=== PATIENT | male | born 1985 | race Caucasian/White ===

== ENCOUNTER 2016-05-12 22:35 | Emergency (ER) | payer SELFPAY ==
--- NOTE | 2016-05-12 23:24 | ER Document Report ---
ED Oral Problem - General Chief Complaint: Toothache Stated Complaint: FACIAL SWELLING Time seen by provider: 23:25 Mode of Arrival: Ambulatory Information source: Patient Notes: This 30-year-old male patient comes emergency room complaining of severe toothache on the left lower molar region for the past 4 days. Part of the tooth is broken away. He was out of town for the last few days. There is no fever associated with this. TRAVEL OUTSIDE OF THE [place] IN LAST 30 DAYS: No - Related Data Allergies/Adverse Reactions: Iodinated Contrast Media - Oral and [IV Dye, Iodine Containing] Allergy ( Verified 07/05/14 14:58) iodine [Iodine] Allergy (Verified 07/05/14 14:58) Past Medical History - General Information source: Patient - Social History Smoking Status: Current Every Day Smoker Cigarette use (# per day): Yes - 1/2 PPD Chew tobacco use (# tins/day): No Smoking Education Provided: No Frequency of alcohol use: None Drug Abuse: None Occupation: moving and storage Lives with: Spouse/Significant other Family History: Reviewed & Not Pertinent Patient has suicidal ideation: No Patient has homicidal ideation: No - Medical History Medical History: Negative Neurological Medical History: Reports: Hx Seizures Renal/ Medical History: Denies: Hx Peritoneal Dialysis Psychiatric Medical History: Reports: Hx Anxiety Traumatic Medical History: Reports: Hx Fractures - RIBS, HIP, STERNUM Surgical Hx: Negative - Immunizations Immunizations up to date: No Hx Diphtheria, Pertussis, Tetanus Vaccination: Yes Review of Systems - Review of Systems Constitutional: No symptoms reported EENT: See HPI, Dental problem Cardiovascular: No symptoms reported Respiratory: No symptoms reported Gastrointestinal: No symptoms reported Genitourinary: No symptoms reported Musculoskeletal: No symptoms reported Skin: No symptoms reported Hematologic/Lymphatic: No symptoms reported Neurological/Psychological: No symptoms reported Physical Exam - Vital signs Vitals: Temp Pulse Resp BP Pulse Ox 97.9 F 77 18 128/71 H 98 05/12/16 22:50 05/12/16 22:50 05/12/16 22:50 05/12/16 22:50 05/12/16 22:50 Interpretation: Normal - General General appearance: Alert In distress: Mild - HEENT Head: Normocephalic, Atraumatic Eyes: Normal Pupils: PERRL Mouth/Lips: Other - The left lower first molar has the medial aspect of the tooth broken off from decay. There is edema to the gum around the tooth. There is no obvious abscess seen. Pharynx: Normal Neck: Normal - Respiratory Respiratory status: No respiratory distress - Cardiovascular Rhythm: Regular - Abdominal Inspection: Normal - Back Back: Normal - Extremities General upper extremity: Normal inspection General lower extremity: Normal inspection - Neurological Neuro grossly intact: Yes - Psychological Associated symptoms: Normal affect, Normal mood - Skin Skin Temperature: Warm Skin Moisture: Dry Skin Color: Normal Course - Vital Signs Vital signs: Temp Pulse Resp BP Pulse Ox 97.9 F 77 18 128/71 H 98 05/12/16 22:50 05/12/16 22:50 05/12/16 22:50 05/12/16 22:50 05/12/16 22:50 Discharge - Discharge Clinical Impression: Toothache Condition: Stable Disposition: HOME, SELF-CARE Additional Instructions: Dental Infection or Abscess: You have an infection, perhaps an abscess (pus formation) of the gum around one of your teeth, which is probably decayed. If there is an abscess, it may drain on its own or it may need to be opened or lanced. Severe swelling or drainage around a tooth usually means a deep dental abscess which usually requires evaluation and treatment by a dentist or oral surgeon. Antibiotics may be prescribed while awaiting dental treatment. If you develop high fever with chills, worsening pain, or increasing swelling in the area, see a dentist or oral surgeon immediately or return to the Emergency Department immediately. TAKE THE MEDICATION PRESCRIBED. TRY FIX-A-TOOTH TO SEAL THE OPEN CAVITY IN THE TOOTH UNTIL YOU CAN SEE A DENTIST THIS WEEK. FOLLOW UP WITH A DENTIST THIS WEEK. RETURN TO THE EMERGENCY ROOM IF ANY NEW OR WORSENING SYMPTOMS. Prescriptions: Oxycodone HCl/Acetaminophen [Percocet 5-325 mg Tablet] 1 - 2 tab PO ASDIR PRN # 15 tablet PRN Reason: Penicillin V Potassium [Penicillin Vk 500 mg Tablet] 500 mg PO QID #28 tablet
[2016-05-12] MEDS ORDERED: PENICILLIN V POTASSIUM 500 MG TABLET PO ONE (23:28)
[2016-05-12] MEDS ORDERED: HYDROCODONE/ACETAMINOPHEN 5-325 MG 6 TAB/DSPK PO PRN (23:28)
[2016-05-12] MEDS ORDERED: OXYCODONE-ACETAMINOPHEN 5-325 MG TABLET PO ONE (23:28)
[2016-05-12 23:55] VITALS: BP 128/71
== END 2016-05-13 | disposition home or self-care (01) ==
LOC: ER 22:35
DX: K08.9 Disorder of teeth and supporting structures, unspecified (principal); F17.210 Nicotine dependence, cigarettes, uncomplicated
CPT/HCPCS: 99282

== ENCOUNTER 2016-10-04 00:13 | Emergency (ER) | payer SELFPAY ==
[2016-10-04] MEDS ORDERED: ONDANSETRON 4 MG TAB.RAPDIS PO ONE (00:22)
[2016-10-04] MEDS ORDERED: ACETAMINOPHEN 325 MG TABLET PO ONE (03:12)
--- NOTE | 2016-10-04 03:21 | RADIOLOGY REPORT (SQ) ---
EXAM DESCRIPTION: HAND RIGHT 3 VIEWS COMPLETED DATE/TIME: 10/04/2016 3:00 am REASON FOR STUDY: dog bite COMPARISON: 06/17/2012. EXAM PARAMETERS: NUMBER OF VIEWS: Three views. TECHNIQUE: AP, lateral and oblique radiographic images acquired of the right hand. LIMITATIONS: None. FINDINGS: MINERALIZATION: Normal. BONES: No acute fracture or dislocation. No worrisome bone lesions. Mild radial angulation deformit y of the right 5th metacarpal shaft consistent with old injury. JOINTS: No effusions. SOFT TISSUES: Known dog bite injury of the right knuckles; the No foreign body. OTHER: No other significant finding. IMPRESSION: No acute bone or joint involvement. Known soft tissue injury. TECHNICAL DOCUMENTATION: JOB ID: [id number] [employer]- All Rights Reserved
[2016-10-04] MEDS ORDERED: ACETAMINOPHEN 325 MG TABLET ONE (03:27)
[2016-10-04] MEDS ORDERED: HYDROMORPHONE HCL INJ/PF 2 MG/ML AMPULE IV ONE (03:31)
[2016-10-04] MEDS ORDERED: AMPICILLIN SOD/SULBACTAM 3 GM VIAL IV ONE (03:31)
[2016-10-04] MEDS ORDERED: ONDANSETRON ODT 4 MG TAB (6 TAB/DSPK) PO PRN (05:02)
[2016-10-04] MEDS ORDERED: HYDROCODONE/ACETAMINOPHEN 5-325 MG 6 TAB/DSPK PO PRN (05:02)
--- NOTE | 2016-10-04 05:02 | ER Document Report ---
ED General - General Chief Complaint: Dog Bite Stated Complaint: HAND INJURY Time Seen by Provider: 10/04/16 03:27 Notes: 31-year-old male who was trying to get his dog away from a snake. The dog became excited and bit his right hand. He has pain with movement of the fingers and pain in the right hand. He has 2 small abrasions to the dorsum of the right hand as well as once more abrasion to the palmar aspect of the right hand. She does denies any numbness or tingling. This incident happened today. His dog is up-to-date in vaccinations. His last Tetanus Shot was 2 years ago. TRAVEL OUTSIDE OF THE [place] IN LAST 30 DAYS: No - Related Data Allergies/Adverse Reactions: Iodinated Contrast- Oral and IV Dye [IV Dye, Iodine Containing] Allergy ( Verified 10/04/16 04:13) iodine [Iodine] Allergy (Verified 10/04/16 04:13) Past Medical History - Social History Smoking Status: Current Every Day Smoker Cigarette use (# per day): No Chew tobacco use (# tins/day): No Frequency of alcohol use: None Drug Abuse: None Family History: Reviewed & Not Pertinent Patient has suicidal ideation: No Patient has homicidal ideation: No Neurological Medical History: Reports: Hx Seizures Renal/ Medical History: Denies: Hx Peritoneal Dialysis Psychiatric Medical History: Reports: Hx Anxiety Traumatic Medical History: Reports: Hx Fractures - RIBS, HIP, STERNUM - Immunizations Immunizations up to date: No Hx Diphtheria, Pertussis, Tetanus Vaccination: Yes Review of Systems - Review of Systems Notes: My Normal Review Basic REVIEW OF SYSTEMS: CONSTITUTIONAL : Denies fever, chills, or sweats. Denies recent illness. MUSCULOSKELETAL: Pain in right hand. SKIN: Denies rash or skin lesions. NEUROLOGICAL: Denies sensory or motor loss. ALL OTHER SYSTEMS REVIEWED AND NEGATIVE. Physical Exam - Vital signs Vitals: Temp Pulse Resp BP Pulse Ox 98.3 F 67 19 118/81 98 10/04/16 00:16 10/04/16 00:16 10/04/16 00:16 10/04/16 00:16 10/04/16 00:16 - Notes Notes: General Appearance: Well nourished, alert, cooperative, no acute distress, moderate obvious discomfort. Vitals: reviewed, See vital signs table. Extremities: strength 5/5 in all extremities, good pulses in all extremities, patient has a very superficial abrasion over the dorsum of the right hand. He then has a second abrasion that appears to be just past the dermis itself. Patient has a small abrasion on the palmar aspect of the right hand. There is no surrounding erythema or swelling. Patient does have significant pain with flexion or extension of the fingers of his hand. He does seem to be able to produce flex and extend his fingers but will not flex or extend them fully but says it is painful. Skin: warm, dry, appropriate color, no rash Neuro: speech clear, oriented x 3, normal affect, responds appropriately to questions. Course - Re-evaluation Re-evalutation: 10/04/16 07:49 10/04/16 07:52 I irrigated all the wounds with saline. I cleaned them with peroxide. I then placed an iodine Gault over the wounds and wrap the hand. I informed him he must return to the ER in 24 hours to reassess the wounds to make sure that she does not have any redness or swelling associated with them. I did give him a dose of Unasyn here. I will place him on Augmentin. Patient encouraged to return to ER immediately if has any redness or swelling to the hand. Patient agrees with plan will be discharged home. Dictation of this chart was performed using voice recognition software; therefore, there may be some unintended grammatical errors. - Vital Signs Vital signs: Temp Pulse Resp BP Pulse Ox 97.6 F 54 L 18 122/70 95 10/04/16 05:10 10/04/16 05:10 10/04/16 05:10 10/04/16 05:10 10/04/16 05:10 Discharge - Discharge Clinical Impression: Dog bite Qualifiers: Encounter type: initial encounter Qualified Code(s): W54.0XXA - Bitten by dog, initial encounter Condition: Good Disposition: HOME, SELF-CARE Additional Instructions: Animal Bites Animal bites are often heavily contaminated with bacteria. In spite of thorough cleansing and proper treatment, these wounds frequently become infected. Bite wounds of the hands are especially prone to complications. Bites are dressed, if possible. Large wounds may require suturing after internal cleansing. Because of infection risk, some large wounds must remain unstitched. Your doctor is trained to advise you on the best treatment for your bite. Call the doctor at once if the wound becomes red, swollen, warm, increasingly painful, or if it begins to drain. Danger signs also include red streaks up the involved extremity, swollen glands in the groin or under the arm , or fever and chills. Please return to the ER within 24 hours so we can recheck your hand and change the dressing. Return to [facility] ER imemdiately if you have redness, increased swelling to the hand, or fevers. Prescriptions: Amox Tr/Potassium Clavulanate [Augmentin 875-125 Tablet] 1 tab PO BID 10 Days Hydrocodone/Acetaminophen [[place] 5-325 mg Tablet] 1 tab PO Q4 PRN #16 tablet PRN Reason: For Breakthrough Pain Forms: Return to Work
[2016-10-04 05:29] VITALS: BP 122/70
== END 2016-10-04 05:10 | disposition home or self-care (01) ==
LOC: ER 00:13
DX: S61.451A Open bite of right hand, initial encounter (principal); W54.0XXA Bitten by dog, initial encounter; F17.200 Nicotine dependence, unspecified, uncomplicated
CPT/HCPCS: 99283; 73130; J0295; J1170

== ENCOUNTER 2017-08-17 17:39 | Emergency (ER) | payer SELFPAY ==
[2017-08-17 17:50] VITALS: BP 139/76
[2017-08-17] MEDS ORDERED: LIDOCAINE 1% INJ (10 MG/ML) 10 ML MDV INJ ONE (18:05)
[2017-08-17] MEDS ORDERED: LIDOCAINE 2% VISCOUS SOLN 20 ML UDCUP PO ONE (18:06)
[2017-08-17] MEDS ORDERED: CLINDAMYCIN HCL 150 MG CAPSULE PO ONE (18:06)
[2017-08-17] MEDS ORDERED: LIDOCAINE 1% INJ-PF (10 MG/ML) 30 ML SDV INJ ONE (18:09)
[2017-08-17] MEDS ORDERED: DEXAMETHASONE 4 MG TABLET PO ONE (18:24)
--- NOTE | 2017-08-17 18:28 | ER Document Report ---
ED Oral Problem - General Chief Complaint: Abscess Stated Complaint: JAW PAIN Time Seen by Provider: 08/17/17 18:05 Mode of Arrival: Ambulatory Information source: Patient Notes: 32-year-old male presents to ED for dental abscess to the left lower jaw with large cavity to tooth #17. Patient states it is been hurting for about a month worse for about a week swelling started a couple days ago and is beginning worse. TRAVEL OUTSIDE OF THE [place] IN LAST 30 DAYS: No - HPI Patient complains to provider of: Swelling of face, Swelling of jaw, Toothache Onset: Last week Onset: Gradual Quality of pain: Sharp, Throbbing Severity: Severe Pain Level: 5 Swollen jaw/face: Moderate Associated symptoms: Toothache Worsened by: Cold Similar symptoms previously: Yes Recently seen / treated by doctor/dentist: No - Related Data Allergies/Adverse Reactions: Iodinated Contrast- Oral and IV Dye [IV Dye, Iodine Containing] Allergy ( Verified 08/17/17 17:44) iodine [Iodine] Allergy (Verified 08/17/17 17:44) Past Medical History - General Information source: Patient - Social History Smoking Status: Current Every Day Smoker Cigarette use (# per day): Yes Smoking Education Provided: Yes - 4 min Frequency of alcohol use: None Drug Abuse: None Lives with: Family Family History: Reviewed & Not Pertinent Patient has suicidal ideation: No Patient has homicidal ideation: No - Past Medical History Cardiac Medical History: Reports: None Pulmonary Medical History: Reports: None EENT Medical History: Reports: None Neurological Medical History: Reports: Hx Seizures Endocrine Medical History: Reports: None Renal/ Medical History: Reports: None Malignancy Medical History: Reports None GI Medical History: Reports: None Musculoskeltal Medical History: Reports Hx Musculoskeletal Deformity, Reports Hx Musculoskeletal Trauma Skin Medical History: Reports None Psychiatric Medical History: Reports: Hx Anxiety Traumatic Medical History: Reports: Hx Fractures - RIBS, HIP, STERNUM, Hx Pneumothorax Past Surgical History: Reports: Hx Orthopedic Surgery - Bilateral hips, sternum , Other - chest tube - Immunizations Immunizations up to date: No Hx Diphtheria, Pertussis, Tetanus Vaccination: Yes Review of Systems - Review of Systems Constitutional: No symptoms reported EENT: No symptoms reported, Mouth swelling, Dental problem Cardiovascular: No symptoms reported Respiratory: No symptoms reported Gastrointestinal: No symptoms reported Genitourinary: No symptoms reported Male Genitourinary: No symptoms reported Musculoskeletal: No symptoms reported Skin: No symptoms reported Hematologic/Lymphatic: No symptoms reported Neurological/Psychological: No symptoms reported -: Yes All other systems reviewed and negative Physical Exam - Vital signs Vitals: Temp Pulse Resp BP Pulse Ox 98.2 F 69 16 139/76 H 99 08/17/17 17:48 08/17/17 17:48 08/17/17 17:48 08/17/17 17:48 08/17/17 17:48 Interpretation: Normal - General General appearance: Appears well, Alert - HEENT Head: Normocephalic, Atraumatic Eyes: Normal Pupils: PERRL Ears: Normal External canal: Normal Tympanic membrane: Normal Sinus: Normal Nasal: Normal Mouth/Lips: Caries Teeth diagram: 1 - Very decayed tooth with a large crater. Large dental abscess lateral to the tooth with swelling to the face in the area of the tooth it does not go below the low the jaw line, no redness to the face. Pharynx: Normal Neck: Anterior cervical chain - Respiratory Respiratory status: No respiratory distress Chest status: Nontender Breath sounds: Normal Chest palpation: Normal - Cardiovascular Rhythm: Regular Heart sounds: Normal auscultation Murmur: No - Abdominal Inspection: Normal Distension: No distension Bowel sounds: Normal Tenderness: Nontender Organomegaly: No organomegaly - Back Back: Normal, Nontender - Extremities General upper extremity: Normal inspection, Nontender, Normal color, Normal ROM , Normal temperature General lower extremity: Normal inspection, Nontender, Normal color, Normal ROM , Normal temperature, Normal weight bearing. No: Sunshine's sign - Neurological Neuro grossly intact: Yes Cognition: Normal Orientation: AAOx4 [place] Coma Scale Eye Opening: Spontaneous [place] Coma Scale Verbal: Oriented Dario Coma Scale Motor: Obeys Commands Dario Coma Scale Total: 15 Speech: Normal Motor strength normal: LUE, RUE, LLE, RLE Sensory: Normal - Psychological Associated symptoms: Normal affect, Normal mood - Skin Skin Temperature: Warm Skin Moisture: Dry Skin Color: Normal Course - Re-evaluation Re-evalutation: 08/17/17 18:45 After performing a Medical Screening Examination, I estimate there is LOW risk for a DEEP SPACE INFECTION (e.g., SCOTTIE'S ANGINA OR RETROPHARYNGEAL ABSCESS), MENINGITIS, INTRACRANIAL HEMORRHAGE, or AIRWAY COMPROMISE, thus I consider the discharge disposition reasonable. Also, there is no evidence or peritonitis, sepsis, or toxicity. I have reevaluated this patient multiple times and no significant life threatening changes are noted. The patient and I have discussed the diagnosis and risks, and we agree with discharging home with close follow-up with the understanding that symptoms and presentations can change. We also discussed returning to the Emergency Department immediately if new or worsening symptoms occur. We have discussed the symptoms which are most concerning (e.g., changing or worsening pain, trouble swallowing or breathing, neck stiffness or fever) that necessitate immediate return. Patient was given viscous lidocaine and then an 18-gauge needle was used to give 1% lidocaine into the abscess. Moderate amount of purulent drainage returned with the 18-gauge needle. A 15 blade was then used to come continue opening the abscess with more purulent drainage return. Patient was encouraged to rinse his mouth with 2 cups of water to flush out as much pus as possible. Patient was treated with 600 mg of clindamycin p.o. in the emergency room and given a syringe of viscous lidocaine to take home with him for his pain. He was also given a prescription of Percocet 5/325 for his pain. Patient was instructed to follow-up with the dentist as soon as possible as this tooth does need to be removed and this abscess needs to be reassessed. Patient was encouraged to return to the ED if he had continued swelling or increase in pain. - Vital Signs Vital signs: Temp Pulse Resp BP Pulse Ox 98.2 F 69 16 139/76 H 99 08/17/17 17:48 08/17/17 17:48 08/17/17 17:48 08/17/17 17:48 08/17/17 17:48 Discharge - Discharge Clinical Impression: Pain due to dental caries, Dental abscess Condition: Stable Disposition: HOME, SELF-CARE Instructions: Dentist, Dental Infection or Abscess (OM) Additional Instructions: TOOTHACHE: Your pain is due to dental decay. The tooth must be repaired in order for you to feel better. You will, therefore, be referred to a dentist. We do not have dentists on the staff at [facility]. Severe swelling or drainage around a tooth usually means a dental abscess. This also requires evaluation and treatment by the dentist, but antibiotics may be prescribed while awaiting dental treatment. You should be rechecked immediately if you develop major swelling of the face, increasing pain, a lump in the jaw or gums, headache, difficulty swallowing, or fever. ORAL NARCOTIC MEDICATION: You have been given a prescription for pain control. This medication is a narcotic. It's best taken with food, as nausea can result if taken on an empty stomach. Don't operate machinery or drive within six hours of taking this medication. Do not combine this medicine with alcohol, or with any medication which can cause sedation (such as cold tablets or sleeping pills) unless you get permission from the physician. Narcotics tend to cause constipation. If possible, drink plenty of fluids and eat a diet high in fiber and fruits. Please be aware that prescription narcotics also have the potential for abuse. People become addicted to these medications because of the general sense of wellbeing that they induce. This feeling along with a significant reduction in tension, anxiety, and aggression provides a stimulating seductive quality to these drugs. Once your pain is under control, we encourage you to discard your unused narcotics. CLINDAMYCIN: You have been given a prescription for the antibiotic clindamycin. It is often prescribed for infections in the mouth, such as dental infections or abscesses, and for skin infections due to MRSA. It's important that you take all the medication, unless instructed otherwise by your physician. Failure to complete the entire course can result in relapse of your condition. Common side effects of antibiotics include nausea, intestinal cramping, or diarrhea. Women may develop vaginal yeast infections, and babies can get yeast (thrush) in the mouth following the use of antibiotics. Contact your physician if you develop significant side effects from this medication. Allergy to this antibiotic can result in hives, wheezing, faintness, or itching. If symptoms of allergy occur, stop the medication and call the doctor. You have been given a syringe of lidocaine gel. You can apply this to the tooth every 1-2 hours as needed for pain. You will need to follow-up with the dentist as soon as possible as this tooth does need to be removed. FOLLOW-UP CARE: You have been referred for follow-up care to the dentists listed below. Call the dentists office for an appointment as you were instructed or within the next two days. If you experience worsening or a significant change in your symptoms, notify the physician immediately or return to the Emergency Department at any time for re-evaluation. [facility] [address] [place], [place] [facility] [address] [place] [address] [facility] [address] [facility] [address] [facility] [address] [facility] [address] [email or web address] [address] [place] [address] Saturday- 8:00am to 5:00 pm Will see patients from other [facility]. Charges based on income and family size and accepts Medicare, Medicaid, and Insurances Will pull molars [facility] [id number] Hours of Operation 8:00 am - 4:30 pm weekdays The following dental offices accept Medicaid: [facility] Dr. Pulido Dr. Orozco Dr. Garcia Dr. Alonso Quinn Brooks Lutsavage, and [facility] oral surgery Dr. Pearson ([place]) Dr. Schuster ([place]) [facility] Drs. Rosenbaum and Thony ([place]) Dr. Meza ([place]) [facility] Dr. Godinez ([place]) Drs. Franco and ([place]) Medicaid Care Line Prescriptions: Oxycodone HCl/Acetaminophen [Percocet 5-325 mg Tablet] 1 tab PO Q6HP PRN #7 tablet PRN Reason: Clindamycin HCl 300 mg PO QID #28 capsule Forms: Elevated Blood Pressure, Smoking Cessation Education, Return to Work
[2017-08-17] MEDS ORDERED: OXYCODONE-ACETAMINOPHEN 5-325 MG TABLET PO ONE (18:35)
== END 2017-08-17 18:45 | disposition home or self-care (01) ==
LOC: ER 17:39
DX: K04.7 Periapical abscess without sinus (principal); K02.9 Dental caries, unspecified; F17.210 Nicotine dependence, cigarettes, uncomplicated; Z71.6 Tobacco abuse counseling; Z91.041 Radiographic dye allergy status
CPT/HCPCS: 99406; 99283; 41800; J3490 ×2

== ENCOUNTER 2017-08-22 16:05 | Emergency (ER) | payer SELFPAY ==
[2017-08-22] MEDS ORDERED: KETOROLAC TROMETHAMINE INJ/PF 30 MG/1 ML SDV IV ONE (18:40)
[2017-08-22] MEDS ORDERED: CLINDAMYCIN 900 MG/D5W RTU 50 ML IV SCH ×2 (18:45→19:00)
[2017-08-22 19:55] VITALS: BP 131/77
--- NOTE | 2017-08-22 20:14 | ER Document Report ---
ED General - General Chief Complaint: Jaw Pain Stated Complaint: JAW SWELLING Time Seen by Provider: 08/22/17 18:29 Mode of Arrival: Ambulatory Information source: Patient Notes: 32-year-old male presents emergency department for evaluation of low jaw pain and swelling for approximately couple months. Patient reports that he was seen here approximately a month ago and was diagnosed with a dental abscess. Patient reports that he was discharged home with clindamycin. He is yet to follow-up with dental. Patient reports that the abscesses come back. He denies any gum or tongue swelling. He denies any difficulty breathing. He also denied any fever, rash, chest pain, shortness of breath, abdominal pain, nausea, vomiting, diarrhea, dysuria, or hematuria. TRAVEL OUTSIDE OF THE [place] IN LAST 30 DAYS: No - Related Data Allergies/Adverse Reactions: Iodinated Contrast- Oral and IV Dye [IV Dye, Iodine Containing] Allergy ( Verified 08/22/17 16:54) iodine [Iodine] Allergy (Verified 08/22/17 16:54) Past Medical History - General Information source: Patient - Social History Smoking Status: Current Every Day Smoker Chew tobacco use (# tins/day): No Frequency of alcohol use: Rare Drug Abuse: None Family History: Reviewed & Not Pertinent Patient has suicidal ideation: No Patient has homicidal ideation: No Neurological Medical History: Reports: Hx Seizures - 2 years ago Renal/ Medical History: Denies: Hx Peritoneal Dialysis Musculoskeltal Medical History: Reports Hx Musculoskeletal Deformity, Reports Hx Musculoskeletal Trauma Psychiatric Medical History: Reports: Hx Anxiety Traumatic Medical History: Reports: Hx Fractures - RIBS, HIP, STERNUM, Hx Pneumothorax Past Surgical History: Reports: Hx Orthopedic Surgery - Bilateral hips, sternum , Other - chest tube - Immunizations Immunizations up to date: No Hx Diphtheria, Pertussis, Tetanus Vaccination: Yes Review of Systems - Review of Systems -: Yes All other systems reviewed and negative Physical Exam - Vital signs Vitals: Temp Pulse Resp BP Pulse Ox 99.3 F 69 20 122/73 98 08/22/17 16:33 08/22/17 16:33 08/22/17 16:33 08/22/17 16:33 08/22/17 16:33 - Notes Notes: PHYSICAL EXAMINATION: GENERAL: Well-appearing, well-nourished and in no acute distress. HEAD: Atraumatic, normocephalic. ENT: Nares patent, oropharynx clear without exudates. Patient with poor Dentalgia. Moist mucous membranes. There is approximately 3 cm x 3 cm indurated area to left jaw with no surrounding erythema or hot to the touch. Moderately tender. No fluctuance. No lymphangitis. NECK: Normal range of motion, supple without lymphadenopathy NEUROLOGICAL: Normal gait, balance, speech, facial symmetry. PSYCH: Normal mood, normal affect. SKIN: Warm, Dry, normal turgor, no rashes or lesions noted. Course - Re-evaluation Re-evalutation: 08/22/17 20:23 Patient presents emergency department for evaluation of left jaw pain and swelling. Consistent with dental abscess. No evidence of surrounding cellulitis. No fluctuance. I&D not warranted at this time. Patient is nontoxic or septic appearing in no acute or respiratory distress. Patient was afebrile and not hypoxic. The likelihood of other entities in the differential is insufficient to justify any further testing for them I discussed care plan at length with patient. Any and all questions were answered. Patient was given Toradol and clindamycin IV. After treatment patient was feeling better and the swelling had gone down quite a bit. Discharged home with dental referral and clindamycin as well as Motrin. Advised patient to follow-up with dental and take medications as instructed. I also advised him to return immediately to the emergency department for any new, worsening, concerning symptoms as discussed. He understands and agrees with plan. - Vital Signs Vital signs: Temp Pulse Resp BP Pulse Ox 98.2 F 62 18 131/77 H 98 08/22/17 19:51 08/22/17 19:51 08/22/17 19:51 08/22/17 19:51 08/22/17 19:51 Discharge - Discharge Clinical Impression: Dental abscess Condition: Good Disposition: HOME, SELF-CARE Instructions: Abscess ([facility]) Additional Instructions: Please continue taking your clindamycin and follow-up with dental. Return immediately to the emergency department for any new, worsening, or concerning symptoms as discussed. Prescriptions: Clindamycin HCl 300 mg PO QID #40 capsule Ibuprofen [Motrin 600 Mg Tablet] 600 mg PO TID #15 tablet Referrals: [facility] [Provider Group] - Follow up as needed
== END 2017-08-22 20:21 | disposition home or self-care (01) ==
LOC: ER 16:05
DX: K04.7 Periapical abscess without sinus (principal); R68.84 Jaw pain; F17.200 Nicotine dependence, unspecified, uncomplicated; Z91.041 Radiographic dye allergy status
CPT/HCPCS: 99283; 96375; 96365; J1885

== ENCOUNTER 2017-11-21 23:01 | Emergency (ER) | payer SELFPAY ==
[2017-11-22 00:13] LABS: ABSOLUTE BASOPHILS # (AUTO) 0.1 10^3/uL (0.0-0.2); ABSOLUTE EOSINOPHILS # (AUTO) 0.1 10^3/uL (0.0-0.6); ABSOLUTE MONOCYTES (AUTO) 1.2 10^3/uL (0.1-1.4); ABSOLUTE NEUT (AUTO) 8.7 10^3/uL (1.7-8.2); BASOPHILS % (AUTO) 0.5 % (0-2); EOSINOPHILS % (AUTO) 0.7 % (0-6); HEMATOCRIT 42.4 % (37.9-51.0); LYMPHOCYTES % (AUTO) 16.7 % (13-45); MEAN CORPUSCULAR HEMOGLOBIN 33.2 pg (27.0-33.4); MEAN CORPUSCULAR HGB CONC 35.5 g/dL (32.0-36.0); MEAN CORPUSCULAR VOLUME 94 fl (80-97); MONOCYTES % (AUTO) 10.1 % (3-13); PLATELET COUNT 207 10^3/uL (150-450); RED BLOOD COUNT 4.53 10^6/uL (4.35-5.55); RED CELL DISTRIBUTION WIDTH 12.7 % (11.5-14.0); TOTAL CELLS COUNTED % (AUTO) 100 %; WHITE BLOOD COUNT 12.1 10^3/uL (4.0-10.5)
[2017-11-22] MEDS ORDERED: CLINDAMYCIN 900 MG/D5W RTU 900 MG/50 ML RTUPB IV ONE (00:38)
[2017-11-22] MEDS ORDERED: DEXAMETHASONE SOD PHOS INJ 10 MG/1 ML VIAL IV ONE (00:38)
--- NOTE | 2017-11-22 00:38 | ER Document Report ---
ED Oral Problem - General Mode of Arrival: Ambulatory Information source: Patient TRAVEL OUTSIDE OF THE [place] IN LAST 30 DAYS: No <TINO MADDOX - Last Filed: 11/22/17 02:43> <DIDIER ISLAS - Last Filed: 11/22/17 05:25> - General Chief Complaint: Facial Swelling Stated Complaint: FACE SWOLLEN Time Seen by Provider: 11/21/17 23:44 Notes: 32-year-old male who presents to the emergency department today with complaints of left-sided facial swelling. Patient states he has a history of dental abscesses and his pain and symptoms today feel similar to that. Patient states he has a dentist that he plans on calling on Saturday to make an appointment. Patient states he has cold chills but denies any fevers. (TINO MADDOX) - Related Data Allergies/Adverse Reactions: Iodinated Contrast- Oral and IV Dye [IV Dye, Iodine Containing] Allergy ( Verified 08/22/17 16:54) iodine [Iodine] Allergy (Verified 08/22/17 16:54) Past Medical History - General Information source: Patient - Social History Smoking Status: Current Every Day Smoker Cigarette use (# per day): Yes Chew tobacco use (# tins/day): No Frequency of alcohol use: None Drug Abuse: None Lives with: Family Family History: Reviewed & Not Pertinent Patient has suicidal ideation: No Patient has homicidal ideation: No Neurological Medical History: Reports: Hx Seizures - 2 years ago Musculoskeletal Medical History: Reports Hx Musculoskeletal Deformity, Reports Hx Musculoskeletal Trauma Psychiatric Medical History: Reports: Hx Anxiety Traumatic Medical History: Reports: Hx Fractures - RIBS, HIP, STERNUM, Hx Pneumothorax Past Surgical History: Reports: Hx Orthopedic Surgery - Bilateral hips, sternum , Other - chest tube - Immunizations Immunizations up to date: No Hx Diphtheria, Pertussis, Tetanus Vaccination: Yes <TINO MADDOX - Last Filed: 11/22/17 02:43> Review of Systems - Review of Systems Constitutional: See HPI, Chills. denies: Fever EENT: See HPI, Other - dental pain, facial swelling Cardiovascular: No symptoms reported Respiratory: No symptoms reported Gastrointestinal: No symptoms reported Genitourinary: No symptoms reported Male Genitourinary: No symptoms reported Musculoskeletal: No symptoms reported Skin: No symptoms reported Hematologic/Lymphatic: No symptoms reported Neurological/Psychological: No symptoms reported -: Yes All other systems reviewed and negative <VARSHATINO - Last Filed: 11/22/17 02:43> Physical Exam - Vital signs Interpretation: Normal - General General appearance: Appears well, Alert - HEENT Head: Normocephalic, Atraumatic Eyes: Normal Extraocular movements intact: Yes Pupils: PERRL Sinus: Normal Mouth/Lips: Caries, Other - Swelling over lower left mandible tenderness to palpation. No trismus. No submandibular erythema, tenderness to palpation or swelling.No sublingual swelling tenderness or erythema. No: Angioedema Mucous membranes: Moist Teeth diagram: 1 - dental caries Pharynx: Normal. No: Erythema, Exudate, Peritonsillar abscess, Post nasal drainage, Retropharyngeal abscess, Tonsillar hypertrophy, Uvular edema, Potential airway comprom. Neck: Normal - Respiratory Respiratory status: No respiratory distress Chest status: Nontender Breath sounds: Normal Chest palpation: Normal - Cardiovascular Rhythm: Regular Heart sounds: Normal auscultation Murmur: No - Abdominal Inspection: Normal Distension: No distension Bowel sounds: Normal Tenderness: Nontender Organomegaly: No organomegaly - Back Back: Normal, Nontender - Extremities General upper extremity: Normal inspection, Nontender, Normal color, Normal ROM , Normal temperature General lower extremity: Normal inspection, Nontender, Normal color, Normal ROM , Normal temperature, Normal weight bearing. No: Sunshine's sign - Neurological Neuro grossly intact: Yes Cognition: Normal Orientation: AAOx4 Elliott Coma Scale Eye Opening: Spontaneous Dario Coma Scale Verbal: Oriented Dario Coma Scale Motor: Obeys Commands Elliott Coma Scale Total: 15 Speech: Normal Motor strength normal: LUE, RUE, LLE, RLE Sensory: Normal - Psychological Associated symptoms: Normal affect, Normal mood - Skin Skin Temperature: Warm Skin Moisture: Dry Skin Color: Normal <DIDIER ISLAS - Last Filed: 11/22/17 05:25> - Vital signs Vitals: Temp Pulse Resp BP Pulse Ox 97.6 F 74 18 124/73 99 11/21/17 23:01 11/21/17 23:01 11/21/17 23:01 11/21/17 23:01 11/21/17 23:01 Course - Laboratory Result Diagrams: 11/21/17 23:55 11/21/17 23:55 <TINO MADDOX - Last Filed: 11/22/17 02:43> - Laboratory Result Diagrams: 11/21/17 23:55 11/21/17 23:55 <DIDIER ISLAS - Last Filed: 11/22/17 05:25> - Re-evaluation Re-evalutation: 11/22/17 Patient is a 32-year-old male who presents complaining of dental pain and swelling over his left lower jaw. He is supposed to see a dentist and is calling on Saturday. He has been given clindamycin here. Blood work is within normal limits. Feels better after dexamethasone and pain medication. He will be discharged home to see dentist. Understands agrees with plan. Return if worsening or concerning symptoms. No evidence for Adithya's angina (DIDIER ISLAS) - Vital Signs Vital signs: Temp Pulse Resp BP Pulse Ox 98 F 64 18 104/74 98 11/22/17 03:42 11/22/17 03:42 11/22/17 03:42 11/22/17 03:42 11/22/17 03:42 - Laboratory Laboratory results interpreted by me: 11/21/17 11/21/17 23:55 23:55 WBC 12.1 H Absolute Neutrophils 8.7 H BUN 22 H Discharge <TINO MADDOX - Last Filed: 11/22/17 02:43> <DIDIER ISLAS - Last Filed: 11/22/17 05:25> - Discharge Clinical Impression: Dental abscess Condition: Stable Disposition: HOME, SELF-CARE Instructions: Dental Infection or Abscess ([facility]) Prescriptions: Amox Tr/Potassium Clavulanate [Augmentin 875-125 Tablet] 1 tab PO BID 14 Days tablet Metoclopramide HCl [Reglan 10 mg Tablet] 1 - 2 tab PO ASDIR PRN #25 tablet PRN Reason: Oxycodone HCl/Acetaminophen [Percocet 5-325 mg Tablet] 1 - 2 tab PO Q4H PRN #15 tablet PRN Reason: Forms: Return to Work Scribe Attestation: 11/22/17 05:25 I personally performed the services described in the documentation, reviewed and edited the documentation which was dictated to the scribe in my presence, and it accurately records my words and actions. (DIDIER ISLAS) Scribe Documentation - Scribe Written by Scribe:: Tate Rushing, 11/22/2017 0228 acting as scribe for :: Callie <TINO MADDOX - Last Filed: 11/22/17 02:43>
[2017-11-22] MEDS ORDERED: ONDANSETRON HCL INJ/PF 4 MG/2 ML SDV IV ONE (00:55)
[2017-11-22] MEDS ORDERED: MORPHINE SULFATE 10 MG/ML INJ IV ONE (00:55)
[2017-11-22 01:09] LABS: ALANINE AMINOTRANSFERASE 21 U/L (21-72); ALBUMIN 3.7 g/dL (3.5-5.0); ALKALINE PHOSPHATASE 60 U/L (38-126); ANION GAP 11 (5-19); ASPARTATE AMINO TRANSFERASE 20 U/L (17-59); BILIRUBIN,DIRECT 0.2 mg/dL (0.0-0.4); BILIRUBIN,TOTAL 0.2 mg/dL (0.2-1.3); BLOOD UREA NITROGEN 22 mg/dL (7-20); CARBON DIOXIDE 26 mmol/L (22-30); CHLORIDE 104 mmol/L (98-107); GLUCOSE 92 mg/dL (75-110); POTASSIUM 3.9 mmol/L (3.6-5.0); SODIUM 141.3 mmol/L (137-145); TOTAL PROTEIN 6.4 g/dL (6.3-8.2)
[2017-11-22 01:37] LABS: APPEARANCE,URINE CLEAR; BILIRUBIN,URINE NEGATIVE (NEGATIVE); COLOR,URINE YELLOW; GLUCOSE, URINE NEGATIVE (NEGATIVE); KETONES,URINE NEGATIVE (NEGATIVE); LEUKOCYTE ESTERASE,URINE NEGATIVE (NEGATIVE); NITRITE,URINE NEGATIVE (NEGATIVE); PROTEIN,URINE NEGATIVE (NEGATIVE); URINE SPECIFIC GRAVITY 1.025; UROBILINOGEN,URINE NEGATIVE mg/dL (<2.0)
[2017-11-22] MEDS ORDERED: METOCLOPRAMIDE HCL INJ/PF 10 MG/2 ML SDV IV ONE (02:48)
[2017-11-22] MEDS ORDERED: HYDROCODONE/ACETAMINOPHEN 5-325 MG (6 TAB/ER DISP) PO PRN (03:34)
[2017-11-22] MEDS ORDERED: ONDANSETRON ODT 4 MG TAB (6 TAB/ER DISP) PO PRN (03:35)
[2017-11-22 03:54] VITALS: BP 104/74
--- NOTE | 2017-11-22 09:09 | EKG REPORT ---
SEVERITY:- ABNORMAL ECG - SINUS RHYTHM FIRST DEGREE AV BLOCK ST ELEVATION SUGGESTS PERICARDITIS : Confirmed by: Susan Taveras 22-Nov-2017 09:08:24
== END 2017-11-22 03:46 | disposition home or self-care (01) ==
LOC: ER 23:01
DX: K04.7 Periapical abscess without sinus (principal); K02.9 Dental caries, unspecified; R68.83 Chills (without fever); F17.210 Nicotine dependence, cigarettes, uncomplicated; Z91.041 Radiographic dye allergy status
CPT/HCPCS: 93005; 99285; 96375; 96365; 36415; 87040; 85025; 80053; 81001; 93010; J2765; J2270; J2405; J1100

== ENCOUNTER 2018-05-29 18:51 | Emergency (ER) | payer SELFPAY ==
[2018-05-29 19:02] VITALS: BP 119/80
[2018-05-29] MEDS ORDERED: KETOROLAC TROMETHAMINE 60 MG/2 ML SDV IM ONE (19:21)
[2018-05-29] MEDS ORDERED: LIDOCAINE 5% (700 MG) TRANSDERMAL ADH..PATCH TP ONE (19:21)
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
== END 2018-05-29 20:05 | disposition home or self-care (01) ==
LOC: ER 18:51
DX: M54.5 Low back pain (principal); F17.200 Nicotine dependence, unspecified, uncomplicated
CPT/HCPCS: 99283; 96372; J1885

== ENCOUNTER 2018-06-21 22:32 | Emergency (ER) | payer SELFPAY ==
[2018-06-22 00:23] LABS: ABSOLUTE BASOPHILS # (AUTO) 0.1 10^3/uL (0.0-0.2); ABSOLUTE LYMPHOCYTES (AUTO) 1.7 10^3/uL (0.5-4.7); ABSOLUTE MONOCYTES (AUTO) 1.7 10^3/uL (0.1-1.4); ABSOLUTE NEUT (AUTO) 8.3 10^3/uL (1.7-8.2); BASOPHILS % (AUTO) 0.6 % (0-2); EOSINOPHILS % (AUTO) 0.2 % (0-6); HEMATOCRIT 42.2 % (37.9-51.0); HEMOGLOBIN 14.9 g/dL (13.5-17.0); LYMPHOCYTES % (AUTO) 14.5 % (13-45); MEAN CORPUSCULAR HEMOGLOBIN 33.1 pg (27.0-33.4); MEAN CORPUSCULAR HGB CONC 35.3 g/dL (32.0-36.0); MEAN CORPUSCULAR VOLUME 94 fl (80-97); MONOCYTES % (AUTO) 14.5 % (3-13); PLATELET COUNT 244 10^3/uL (150-450); RED BLOOD COUNT 4.51 10^6/uL (4.35-5.55); RED CELL DISTRIBUTION WIDTH 11.9 % (11.5-14.0); SEGMENTED NEUTROPHILS % (AUTO) 70.2 % (42-78); TOTAL CELLS COUNTED % (AUTO) 100 %; WHITE BLOOD COUNT 11.8 10^3/uL (4.0-10.5)
[2018-06-22 00:38] LABS: ALANINE AMINOTRANSFERASE 31 U/L (21-72); ALBUMIN 3.9 g/dL (3.5-5.0); ALKALINE PHOSPHATASE 60 U/L (38-126); ANION GAP 9 (5-19); ASPARTATE AMINO TRANSFERASE 20 U/L (17-59); BILIRUBIN,DIRECT 0.1 mg/dL (0.0-0.4); BILIRUBIN,TOTAL 0.5 mg/dL (0.2-1.3); BLOOD UREA NITROGEN 16 mg/dL (7-20); CALCIUM 9.2 mg/dL (8.4-10.2); CARBON DIOXIDE 29 mmol/L (22-30); CHLORIDE 100 mmol/L (98-107); GLUCOSE 88 mg/dL (75-110); POTASSIUM 3.4 mmol/L (3.6-5.0); SODIUM 137.8 mmol/L (137-145); TOTAL PROTEIN 6.8 g/dL (6.3-8.2)
--- NOTE | 2018-06-22 00:56 | RADIOLOGY REPORT (SQ) ---
EXAM DESCRIPTION: XR CHEST 2 VIEWS COMPLETED DATE/TME: 06/22/2018 00:03 CLINICAL HISTORY: 32 years, Male, cough, fever Comparison: July 05, 2014 FINDINGS: No focal lung consolidation. No pleural effusion. No pneumothorax. Cardiac and mediastinal silhouette is unremarkable. No acute osseous abnormality. Soft tissues are unremarkable. IMPRESSION: No acute findings. No focal lung consolidation.
[2018-06-22 01:31] LABS: A TYPE INFLUENZA AG NEGATIVE (NEGATIVE); B INFLUENZA AG NEGATIVE (NEGATIVE)
[2018-06-22] MEDS ORDERED: ALBUTEROL SULFATE HFA (90 MCG/PUFF) 200 PUFF/8.5 GM MDI IH ONE (02:49)
[2018-06-22] MEDS ORDERED: BENZONATATE 100 MG CAPSULE PO ONE (02:50)
[2018-06-22] MEDS ORDERED: DEXAMETHASONE 4 MG TABLET PO ONE (02:50)
[2018-06-22] MEDS ORDERED: ACETAMINOPHEN 325 MG TABLET PO ONE (02:51)
--- NOTE | 2018-06-22 02:56 | ER Document Report ---
ED General - General Chief Complaint: Shortness Of Breath Stated Complaint: VOMITING Time Seen by Provider: 06/22/18 00:03 Notes: Patient is a 32-year-old male without chronic medical problems, everyday tobacco user, presents complaining of 10 days of cough, sinus pressure, nausea, posttussive emesis, and night sweats. The patient states that he also feels extremely cold at night. States that his symptoms started gradually, come and go, seem to be more notable at night. Has been trying ibuprofen with mild improvement of his symptoms. Nothing seems to worsen his symptoms. Has continued to smoke throughout the duration of his symptoms. Has not seen his general physician regarding today's concerns. Denies any history of DVT or pul monary embolus. States that sometimes when he coughs there is flecks of blood in the sputum although denies gross hemoptysis. No history of exposure to tuberculosis or previous incarceration. TRAVEL OUTSIDE OF THE [place] IN LAST 30 DAYS: No - HPI Onset: Other - 10 days ago Onset/Duration: Gradual Quality of pain: Achy Severity: Moderate Pain Level: 2 Associated symptoms: Body/muscle aches, Nausea, Vomiting, Shortness of breath Exacerbated by: Coughing Relieved by: Denies Similar symptoms previously: No Recently seen / treated by doctor: No - Related Data Allergies/Adverse Reactions: Iodinated Contrast- Oral and IV Dye [IV Dye, Iodine Containing] Allergy (Verif ied 06/21/18 22:33) iodine [Iodine] Allergy (Verified 06/21/18 22:33) Past Medical History - General Information source: Patient - Social History Smoking Status: Current Every Day Smoker Frequency of alcohol use: Occasional Drug Abuse: Marijuana Lives with: Spouse/Significant other Family History: Reviewed & Not Pertinent Neurological Medical History: Reports: Hx Seizures - 2 years ago Renal/ Medical History: Denies: Hx Peritoneal Dialysis Musculoskeletal Medical History: Reports Hx Musculoskeletal Deformity, Reports Hx Musculoskeletal Trauma Psychiatric Medical History: Reports: Hx Anxiety Traumatic Medical History: Reports: Hx Fractures - RIBS, HIP, STERNUM, Hx Pneumothorax Past Surgical History: Reports: Hx Orthopedic Surgery - Bilateral hips, sternum, Other - chest tube - Immunizations Immunizations up to date: No Hx Diphtheria, Pertussis, Tetanus Vaccination: Yes Review of Systems - Review of Systems Notes: Constitutional: Positive for hot and cold sensation, diaphoresis HENT: Negative for sore throat. Eyes: Negative for visual changes. Cardiovascular: Negative for chest pain. Respiratory: Positive for cough, shortness of breath Gastrointestinal: Negative for abdominal pain, positive for posttussive emesis Genitourinary: Negative for dysuria. Musculoskeletal: Negative for back pain. Skin: Negative for rash. Neurological: Negative for headaches, weakness or numbness. 10 point ROS negative except as marked above and in HPI. Physical Exam - Vital signs Vitals: Temp Pulse Resp BP Pulse Ox 100.1 F 105 H 22 H 131/83 H 97 06/21/18 22:39 06/21/18 22:39 06/21/18 22:39 06/21/18 22:39 06/21/18 22:39 Interpretation: Tachycardic Notes: PHYSICAL EXAMINATION: GENERAL: Well-appearing, well-nourished and in no acute distress. HEAD: Atraumatic, normocephalic. EYES: Pupils equal round and reactive to light, extraocular movements intact, sc stephanie anicteric, conjunctiva are normal. ENT: nares patent, oropharynx clear without exudates. Moist mucous membranes. NECK: Normal range of motion, supple without lymphadenopathy LUNGS: Breath sounds clear to auscultation bilaterally and equal. No wheezes rales or rhonchi. HEART: Regular rate and rhythm without murmurs ABDOMEN: Soft, nontender, normoactive bowel sounds. No guarding, no rebound. No masses appreciated. EXTREMITIES: Normal range of motion, no pitting or edema. No cyanosis. NEUROLOGICAL: No focal neurological deficits. Moves all extremities spontaneously and on command. PSYCH: Normal mood, normal affect. SKIN: Warm, Dry, normal turgor, no rashes or lesions noted. Course - Re-evaluation Re-evalutation: 06/22/18 02:53 Patient presents with a clinical history and exam most consistent with an acute viral bronchitis. Patient is overall well in appearance without tachypnea, hypoxemia, or difficulty with ambulation. Mildly tachycardic at time of presentation although not at time of evaluation. Breath sounds are clear bilaterally. Patient is afebrile at time of presentation has not recorded fever at home. Patient does have additional signs of upper respiratory infection including nasal congestion, sore throat, and sinus pressure. Chest x-ray, labs, influenza testing all unremarkable. No evidence of tuberculosis, no risk factors for tuberculosis. Will treat with bronchodilators, single dose of dexamethasone, and Tessalon Perles. At this time will discharge with return precautions and follow-up recommendations. Verbal discharge instructions given a the bedside and opportunity for questions given. Medication warnings reviewed. Patient is in agreement with this plan and has verbalized understanding of return precautions and the need for primary care follow-up in the next 24-72 hours. - Vital Signs Vital signs: Temp Pulse Resp BP Pulse Ox 100.1 F 105 H 22 H 131/83 H 97 06/21/18 22:39 06/21/18 22:39 06/21/18 22:39 06/21/18 22:39 06/21/18 22:39 - Laboratory Result Diagrams: 06/22/18 00:10 06/22/18 00:10 Laboratory results interpreted by me: 06/22/18 06/22/18 00:10 00:10 WBC 11.8 H Monocytes % 14.5 H Absolute Neutrophils 8.3 H Absolute Monocytes 1.7 H Potassium 3.4 L - Diagnostic Test Radiology reviewed: Image reviewed, Reports reviewed Radiology results interpreted by me: 06/22/18 02:54 Chest x-ray: No acute infiltrate or pneumothorax Discharge - Discharge Clinical Impression: Bronchitis, Night sweats, Post-tussive emesis, Tobacco abuse Condition: Good Disposition: HOME, SELF-CARE Additional Instructions: You were seen for symptoms most consistent with bronchitis. This can take up to 12 weeks to fully resolve. This is generally due to a viral infection. Please follow-up with your primary doctor in the next 2-3 days. Return if you develop worsening cough, vomiting, fever >100.4, pass out, begin coughing blood, or have any other symptoms that are concerning to you. Please use the medications prescribed today as directed. Prescriptions: Benzonatate [Tessalon Perles 100 mg Capsule] 100 mg PO Q8HP PRN #40 capsule PRN Reason: Forms: Return to Work
[2018-06-22 03:05] VITALS: BP 128/76
== END 2018-06-22 03:05 | disposition home or self-care (01) ==
LOC: ER 22:32
DX: J40 Bronchitis, not specified as acute or chronic (principal); R05 Cough; J34.89 Other specified disorders of nose and nasal sinuses; R11.2 Nausea with vomiting, unspecified; R06.02 Shortness of breath; R09.81 Nasal congestion; J02.9 Acute pharyngitis, unspecified; R61 Generalized hyperhidrosis; M79.10 Myalgia, unspecified site; F17.200 Nicotine dependence, unspecified, uncomplicated; Z91.041 Radiographic dye allergy status
CPT/HCPCS: 99285; 36415; 85025; 80053; 87804; 71046; J3490

== ENCOUNTER 2019-11-24 15:53 | Emergency (ER) | payer OTHER ==
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
[2019-11-24 17:55] LABS: ABSOLUTE BASOPHILS # (AUTO) 0.1 10^3/uL (0.0-0.2); ABSOLUTE EOSINOPHILS # (AUTO) 0.1 10^3/uL (0.0-0.6); ABSOLUTE MONOCYTES (AUTO) 0.9 10^3/uL (0.1-1.4); ABSOLUTE NEUT (AUTO) 5.6 10^3/uL (1.7-8.2); BASOPHILS % (AUTO) 0.6 % (0-2); EOSINOPHILS % (AUTO) 0.7 % (0-6); HEMATOCRIT 48.4 % (37.9-51.0); HEMOGLOBIN 16.5 g/dL (13.5-17.0); LYMPHOCYTES % (AUTO) 23.5 % (13-45); MEAN CORPUSCULAR HEMOGLOBIN 33.1 pg (27.0-33.4); MEAN CORPUSCULAR HGB CONC 34.2 g/dL (32.0-36.0); MEAN CORPUSCULAR VOLUME 97 fl (80-97); MONOCYTES % (AUTO) 10.2 % (3-13); PLATELET COUNT 235 10^3/uL (150-450); RED CELL DISTRIBUTION WIDTH 12.5 % (11.5-14.0); TOTAL CELLS COUNTED % (AUTO) 100 %; WHITE BLOOD COUNT 8.6 10^3/uL (4.0-10.5)
[2019-11-24 18:13] LABS: ALBUMIN 4.8 g/dL (3.5-5.0); ALKALINE PHOSPHATASE 56 U/L (38-126); ANION GAP 9 (5-19); ASPARTATE AMINO TRANSFERASE 27 U/L (17-59); BILIRUBIN,DIRECT 0.2 mg/dL (0.0-0.4); BILIRUBIN,TOTAL 0.6 mg/dL (0.2-1.3); BLOOD UREA NITROGEN 19 mg/dL (7-20); CALCIUM 9.3 mg/dL (8.4-10.2); CARBON DIOXIDE 27 mmol/L (22-30); CHLORIDE 104 mmol/L (98-107); GLUCOSE 83 mg/dL (75-110); POTASSIUM 4.3 mmol/L (3.6-5.0); TOTAL PROTEIN 7.1 g/dL (6.3-8.2)
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
[2019-11-24 18:53] LABS: APPEARANCE,URINE CLEAR; BILIRUBIN,URINE NEGATIVE (NEGATIVE); COLOR,URINE YELLOW; GLUCOSE, URINE NEGATIVE (NEGATIVE); KETONES,URINE NEGATIVE (NEGATIVE); LEUKOCYTE ESTERASE,URINE NEGATIVE (NEGATIVE); NITRITE,URINE NEGATIVE (NEGATIVE); PROTEIN,URINE NEGATIVE (NEGATIVE); URINE SPECIFIC GRAVITY 1.026
[2019-11-24] MEDS ORDERED: HYDROCODONE/ACETAMINOPHEN 5-325 MG (6 TAB/ER DISP) PO PRN (21:07)
[2019-11-24] MEDS ORDERED: HYDROCODONE/ACETAMINOPHEN 5-325 MG TABLET PO ONE (21:07)
[2019-11-24 22:01] VITALS: BP 112/75
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
== END 2019-11-24 22:07 | disposition home or self-care (01) ==
LOC: ER 15:53
DX: S46.812A Strain of other muscles, fascia and tendons at shoulder and upper arm level, left arm, initial encounter (principal); K02.9 Dental caries, unspecified; M54.5 Low back pain; R51 Headache; M25.511 Pain in right shoulder; R10.2 Pelvic and perineal pain; R07.9 Chest pain, unspecified; R10.9 Unspecified abdominal pain; R07.89 Other chest pain; M54.2 Cervicalgia; R68.84 Jaw pain; V87.7XXA Person injured in collision between other specified motor vehicles (traffic), initial encounter; Z88.8 Allergy status to other drugs, medicaments and biological substances; F17.210 Nicotine dependence, cigarettes, uncomplicated
CPT/HCPCS: 36415; 71250; 74176; 80053; 81001; 83690; 85025; 99284

== ENCOUNTER 2020-04-12 21:13 | Emergency (ER) | payer OTHER ==
--- NOTE | 2020-04-12 21:44 | ER Document Report ---
ED Medical Screen (RME) - General Chief Complaint: Cough Stated Complaint: COUGH/CONGESTION Time Seen by Provider: 04/12/20 21:28 TRAVEL OUTSIDE OF THE [place] IN LAST 30 DAYS: No - HPI Notes: 04/12/20 21:39 34-year-old male with a history of GERD presents to the emergency room today for evaluation of a cough and dry mouth for the last week. Patient states that he does smoke "all day long, mild cigars and and smokes marijuana daily" that causes his dry mouth. Patient denies any positive Covid test, has not been tested for Covid recently. Patient has been trying to make himself vomit several times in the last week to try to help "remoisten" his mouth. Patient states is unsure if it is just paranoia or his anxiety. Denies any chest pain, shortness of breath, non self- induced vomiting, nausea, abdominal pain, fevers and chills, I have greeted and performed a rapid initial assessment of this patient. A comprehensive ED assessment and evaluation of the patient, analysis of test results and completion of the medical decision making process will be conducted by additional ED providers. PHYSICAL EXAMINATION: GENERAL: Well-appearing, well-nourished and in no acute distress. ENT: Tongue without white coating, no thrush noted NECK: Normal range of motion CV: s1, s2 regular LUNGS: No respiratory distress The patient was evaluated during a global COVID-19 pandemic and that diagnosis was suspected/considered upon their initial presentation. Their evaluation, treatment and testing was consistent with current guidelines for patients who present with complaints or symptoms and may be related to COVID-19. - Related Data Allergies/Adverse Reactions: Iodinated Contrast Media [IV Dye, Iodine Containing] Allergy (Verified 11/24/19 16:47) iodine [Iodine] Allergy (Verified 11/24/19 16:47) Past Medical History Neurological Medical History: Reports: Hx Seizures - 2 years ago Renal/ Medical History: Denies: Hx Peritoneal Dialysis Musculoskeltal Medical History: Reports Hx Musculoskeletal Deformity, Reports Hx Musculoskeletal Trauma Psychiatric Medical History: Reports: Hx Anxiety Traumatic Medical History: Reports: Hx Fractures - RIBS, HIP, STERNUM, Hx Pneumothorax Past Surgical History: Reports: Hx Orthopedic Surgery - Bilateral hips, sternum, Other - chest tube - Immunizations Immunizations up to date: No Hx Diphtheria, Pertussis, Tetanus Vaccination: Yes Physical Exam - Vital signs Vitals: Temp Pulse Resp BP Pulse Ox 97.8 F 69 17 142/103 H 99 04/12/20 21:21 04/12/20 21:21 04/12/20 21:21 04/12/20 21:21 04/12/20 21:21 Course - Vital Signs Vital signs: Temp Pulse Resp BP Pulse Ox 97.8 F 69 17 142/103 H 99 04/12/20 21:21 04/12/20 21:21 04/12/20 21:21 04/12/20 21:21 04/12/20 21:21
[2020-04-12 22:01] LABS: ABSOLUTE BASOPHILS # (AUTO) 0.1 10^3/uL (0.0-0.2); ABSOLUTE EOSINOPHILS # (AUTO) 0.1 10^3/uL (0.0-0.6); ABSOLUTE LYMPHOCYTES (AUTO) 1.8 10^3/uL (0.5-4.7); ABSOLUTE MONOCYTES (AUTO) 0.9 10^3/uL (0.1-1.4); ABSOLUTE NEUT (AUTO) 6.7 10^3/uL (1.7-8.2); BASOPHILS % (AUTO) 0.6 % (0-2); HEMATOCRIT 47.6 % (37.9-51.0); HEMOGLOBIN 16.5 g/dL (13.5-17.0); MEAN CORPUSCULAR HEMOGLOBIN 32.7 pg (27.0-33.4); MEAN CORPUSCULAR HGB CONC 34.6 g/dL (32.0-36.0); MEAN CORPUSCULAR VOLUME 94 fl (80-97); MONOCYTES % (AUTO) 9.2 % (3-13); PLATELET COUNT 233 10^3/uL (150-450); RED BLOOD COUNT 5.05 10^6/uL (4.35-5.55); RED CELL DISTRIBUTION WIDTH 12.2 % (11.5-14.0); SEGMENTED NEUTROPHILS % (AUTO) 70.2 % (42-78); TOTAL CELLS COUNTED % (AUTO) 100 %; WHITE BLOOD COUNT 9.5 10^3/uL (4.0-10.5)
--- NOTE | 2020-04-12 22:14 | RADIOLOGY REPORT (SQ) ---
EXAM DESCRIPTION: CHEST SINGLE VIEW 04/12/2020 9:38 PM [employer]INE[employer] CLINICAL HISTORY: 34 years Male, cough, difficult to breathe; ; COMPARISON: Prior study from 06/21/2018 FINDINGS: Single view is obtained. Cardiac and mediastinal contours are stable. Lungs are clear. No pleural effusion or pneumothorax. IMPRESSION: No acute disease.
[2020-04-12 22:21] LABS: ALBUMIN 4.6 g/dL (3.5-5.0); ALKALINE PHOSPHATASE 58 U/L (38-126); ASPARTATE AMINO TRANSFERASE 30 U/L (17-59); BILIRUBIN,DIRECT 0.2 mg/dL (0.0-0.4); BILIRUBIN,TOTAL 0.4 mg/dL (0.2-1.3); BLOOD UREA NITROGEN 21 mg/dL (7-20); CALCIUM 9.5 mg/dL (8.4-10.2); CARBON DIOXIDE 30 mmol/L (22-30); CHLORIDE 101 mmol/L (98-107); GLUCOSE 93 mg/dL (75-110); POTASSIUM 4.3 mmol/L (3.6-5.0); TOTAL PROTEIN 7.4 g/dL (6.3-8.2)
[2020-04-12 22:24] LABS: ANION GAP 4 (5-19)
[2020-04-13] MEDS ORDERED: GUAIFENESIN 600 MG TABLET.SA PO ONE (05:12)
[2020-04-13] MEDS ORDERED: ACETAMINOPHEN 325 MG TABLET PO ONE (05:14)
--- NOTE | 2020-04-13 05:18 | ER Document Report ---
HPI - HPI Time Seen by Provider: 04/12/20 21:28 Onset: Last week Onset/Duration: Waxing and waning Quality of pain: No pain Pain Level: Denies Context: Patient states that he has been breathing out of his mouth because he has been congested. Patient states that when he does this but feels as though his tongue gets kicked up even though there is nothing on his tongue. Patient states that he forces himself to vomit as he feels as though this helps clear his congestion symptoms. Patient denies any fever. Patient denies any cough. Patient denies any chest pain. Associated Symptoms: Vomiting - self induced. denies: Nonproductive cough, Productive cough, Earache, Fever, Nausea Exacerbated by: Denies Relieved by: Denies Similar symptoms previously: No Recently seen / treated by doctor: No - ROS ROS below otherwise negative: Yes Systems Reviewed and Negative: Yes All other systems reviewed and negative - CONSTITUTIONAL Constitutional: DENIES: Fever, Chills - EENT EENT: REPORTS: Congestion. DENIES: Sore Throat, Ear Pain, Eye problems - NEURO Neurology: DENIES: Headache, Weakness, Vision blurred, Dizzinesss / Vertigo - CARDIOVASCULAR Cardiovascular: DENIES: Chest pain - RESPIRATORY Respiratory: DENIES: Coughing - GASTROINTESTINAL Gastrointestinal: REPORTS: Patient vomiting - self inducted. DENIES: Abdominal Pain, Black / Bloody Stools - MUSCULOSKELETAL Musculoskeletal: DENIES: Extremity pain - DERM Skin Color: Normal Skin Problems: None Past Medical History - Social History Smoking Status: Current Every Day Smoker Frequency of alcohol use: None Drug Abuse: Marijuana Family History: Reviewed & Not Pertinent Neurological Medical History: Reports: Hx Seizures - 2 years ago Renal/ Medical History: Denies: Hx Peritoneal Dialysis Musculoskeletal Medical History: Reports Hx Musculoskeletal Deformity, Reports Hx Musculoskeletal Trauma Psychiatric Medical History: Reports: Hx Anxiety Traumatic Medical History: Reports: Hx Fractures - RIBS, HIP, STERNUM, Hx Pneumothorax Past Surgical History: Reports: Hx Orthopedic Surgery - Bilateral hips, sternum, Other - chest tube - Immunizations Immunizations up to date: No Hx Diphtheria, Pertussis, Tetanus Vaccination: Yes Vertical Provider Document - CONSTITUTIONAL Agree With Documented VS: Yes Exam Limitations: No Limitations General Appearance: WD/WN, No Apparent Distress - INFECTION CONTROL TRAVEL OUTSIDE OF THE [place] IN LAST 30 DAYS: No - HEENT HEENT: Atraumatic, Normocephalic, Pharyngeal Erythema. negative: Pharyngeal Exudate, Pharyngeal Tenderness, Tympanic Membrane Red, Tympanic Membrane Bulging - NECK Neck: Normal Inspection, Supple. negative: Lymphadenopathy-Left, Lymphadenopathy-Right - RESPIRATORY Respiratory: Breath Sounds Normal, No Respiratory Distress - CARDIOVASCULAR Cardiovascular: Regular Rate, Regular Rhythm - GI/ABDOMEN Gastrointestinal: Abdomen Soft - BACK Back: Normal Inspection - MUSCULOSKELETAL/EXTREMETIES Musculoskeletal/Extremeties: [place], FROM - NEURO Level of Consciousness: Awake, Alert, Appropriate Motor/Sensory: No Motor Deficit - DERM Integumentary: Warm, Dry, No Rash Course - Re-evaluation Re-evalutation: 04/13/20 06:25 Patient positive for mono, strep test negative. Patient nontoxic in appearance, no potential airway compromise. Patient encouraged to avoid causing himself to vomit. Discussed methods to help with his congestion symptoms as well as helping to moisturize the mouth including increased oral fluids and use of [employer] mouthwash [id number]. Good return precautions discussed with patient. Patient encouraged to avoid any contact sports or activities. - Vital Signs Vital signs: Temp Pulse Resp BP Pulse Ox 97.5 F 50 L 16 113/68 100 04/13/20 01:37 04/13/20 01:37 04/13/20 01:37 04/13/20 01:37 04/13/20 01:37 - Laboratory Results Result Diagrams: 04/12/20 21:47 04/12/20 21:47 Laboratory Results Interpreted: 04/12/20 21:47 Sodium 135.2 L Anion Gap 4 L BUN 21 H 04/13/20 09:10 Labs- All tests 24 hr 04/12/20 04/12/20 04/12/20 21:47 21:47 21:47 WBC 9.5 RBC 5.05 Hgb 16.5 Hct 47.6 MCV 94 MCH 32.7 MCHC 34.6 RDW 12.2 Plt Count 233 Lymph % (Auto) 19.0 [place] % (Auto) 9.2 Eos % (Auto) 1.0 Baso % (Auto) 0.6 Absolute Neuts (auto) 6.7 Absolute Lymphs (auto) 1.8 Absolute Monos (auto) 0.9 Absolute Eos (auto) 0.1 Absolute Basos (auto) 0.1 Seg Neutrophils % 70.2 Sodium 135.2 L Potassium 4.3 Chloride 101 Carbon Dioxide 30 Anion Gap 4 L BUN 21 H Creatinine 0.88 Est GFR ( Amer) > 60 Est GFR (MDRD) Non-Af > 60 Glucose 93 Calcium 9.5 Total Bilirubin 0.4 Direct Bilirubin 0.2 Neonat Total Bilirubin Not Reportable Neonat Direct Bilirubin Not Reportable Neonat Indirect Bili Not Reportable AST 30 ALT 17 Alkaline Phosphatase 58 Total Protein 7.4 Albumin 4.6 Monotest POSITIVE H Group A Strep Rapid 04/13/20 05:25 WBC RBC Hgb Hct MCV MCH MCHC RDW Plt Count Lymph % (Auto) [place] % (Auto) Eos % (Auto) Baso % (Auto) Absolute Neuts (auto) Absolute Lymphs (auto) Absolute Monos (auto) Absolute Eos (auto) Absolute Basos (auto) Seg Neutrophils % Sodium Potassium Chloride Carbon Dioxide Anion Gap BUN Creatinine Est GFR ( Amer) Est GFR (MDRD) Non-Af Glucose Calcium Total Bilirubin Direct Bilirubin Neonat Total Bilirubin Neonat Direct Bilirubin Neonat Indirect Bili AST ALT Alkaline Phosphatase Total Protein Albumin Monotest Group A Strep Rapid NEGATIVE Critical Laboratory Results Reviewed: No Critical Results - Radiology Results Critical Radiology Results Reviewed: No Critical Results Discharge - Discharge Clinical Impression: Nasal congestion, Mouth dryness Mononucleosis Qualifiers: Infectious mononucleosis etiology: unspecified organism Infectious mononucleosis complication: without complication Qualified Code(s): B27.90 - Infectious mononucleosis, unspecified without complication Condition: Stable Disposition: HOME, SELF-CARE Instructions: Mononucleosis ([facility]) Additional Instructions: Return immediately for any new or worsening symptoms Followup with your primary care provider, call tomorrow to make a followup appointment You may use Biotene mouthwash [id number] to help moisturize your mouth Avoid contact sports and physical activities Forms: Return to Work Referrals: [facility] [Provider Group] - Follow up as needed
[2020-04-13 06:39] VITALS: BP 125/75
== END 2020-04-13 06:40 | disposition home or self-care (01) ==
LOC: ER 21:13
DX: B27.90 Infectious mononucleosis, unspecified without complication (principal); R09.81 Nasal congestion; R68.2 Dry mouth, unspecified; F17.200 Nicotine dependence, unspecified, uncomplicated; F12.10 Cannabis abuse, uncomplicated
CPT/HCPCS: 36415; 71045; 80053; 85025; 86308; 87070; 87077; 87880; 99284